=== PATIENT | female | born 1970 | race Caucasian/White ===

== ENCOUNTER 2017-12-18 18:50 | Observation (INO) | payer BC ==
[2017-12-18] MEDS ORDERED: LR 1000 ML IV 1,000 ML IV ONE ×2 (19:06→19:14)
[2017-12-18] MEDS ORDERED: NS 1000 ML 1,000 ML IV ONE (19:12)
--- NOTE | 2017-12-18 19:16 | DR.GENAD ---
HPI - PCP Primary Care Physician: SAJI - HPI Comment HPI Comment: HISTORY BELOW. - Complaint/Symptoms Chief Complaint Doctors Comments: ON TRANEX ACID FOR UTERINE BLEEDING AND BLEEDING GOT WORSE TODAY. TONIGHT SHE HEMORRHAGE WITH BLOOD COMING OUT OF VAGINAL AREA RAPIDLY. SHE STARTED GETTING DIZZY IF SHE WILL PASS OUT. IN TRIAGE, LARGE AMOUNT OF BLOOD POUR OUT WITH LARGE CLOTS. SHE WAS HYPOTENSIVE IN TRIAGE. Chief Complaint:: BLEEDING NON STOP, WEAK. BLEEDING FOR 2 DAYS, HEAVY. HAS NOT CONTACTED PCP - Nurses notes reviewed Nurses Notes Review: Yes - Source History Provided: Patient - Mode of Arrival Mode of Arrival: Ambulatory - Timing Onset of Chief Complaint: 12/17/17 Came on: Suddenly - Duration Duration: Constant Duration: Days PMH - PMH Past Medical History: Yes Past Medical History: Diabetes Past Surgical History: Yes Surgical History: - Family History History of Family Medical Conditions: Yes Family Medical History: Diabetes Mellitus, Hypertension - Social History Does patient currently use any type of tobacco product: No Have you used tobacco products in the last 12 months: No Type of Tobacco Use: None Does any household member use tobacco: No Alcohol Use: None Do you use any recreational Drugs:: No Lives With: Family Lives Where: Home - infectious screening Have you traveled outside the country in the last 6 months?: No Isolation: Standard ROS - Review of Systems Constitutional: Weakness, Fatigue. negative: Chills, Fever, Malaise Eyes: Blurred Vision. negative: Eye Pain, Discharge ENTM: negative: Ear Pain, Nose Discharge, Nose Congestion, Throat Pain Respiratoy: Short of Breath. negative: Productive Cough, Non-Productive Cough, Wheezing, Hemoptysis Cardiovascular: negative: Chest Pain, Edema, Palpitations Gastrointestinal/Abdominal: Abdominal Pain. negative: Diarrhea, Nausea, Vomiting Genitourinary: Pain (BLEEDING PROFUSELY FROM VAGINAL AREA.), Bleeding Neurological: Weakness, Dizziness Musculoskeletal: No Symptoms Reported Integumentary: No Symptoms Reported Hematologic/Lymphatic: Anemia Endocrine: No Symptoms Reported All Other Systems: Reviewed and Negative PE - Vital Signs Vitals: Temperature 97.8 F Pulse Rate [Apical] 104 Pulse Rate 125 Respiratory Rate 27 Blood Pressure [Left Arm] 141/80 Blood Pressure 172/98 O2 Sat by Pulse Oximetry 99 - General Limitations: No Limitations General Appearance: Alert - Head Head Exam: Normal Inspection - Eyes Eye exam: Normal Appearance - ENT ENT Exam: Normal External Ear Exam MDM - Additional Information Additional Information Obtained From: Family - Differential Diagnosis Differential Diagnosis: HYPOTENSION, DIZZINESS VAGINAL BLEEDING/HEMORRHAGE, Course - Treatment Treatment: SEE ORDERS. IV FLUID BOLUS RL AND NS INFUSION IMPROVE BP IN ED. - Consultation Consultation Comments: DISCUSS PATIENT WITH DR. KAUFMAN. WILL ADMIT PATIENT. - Education/Counseling Education/Counseling: Patient, Family Educated On: Treatment, Diagnosis ROR - Labs Reviewed Laboratory Results Reviewed?: Yes Result Diagrams: 12/19/17 01:41 12/18/17 19:15 Laboratory: WBC 19.5 X10^3/uL (3.6-10.0) H 12/18/17 19:15 RBC 3.71 X10^6/uL (3.5-5.4) 12/18/17 19:15 Hgb 6.7 g/dL (12.0-16.0) L* D 12/19/17 01:41 Hct 21.1 % (36.0-47.0) L 12/19/17 01:41 MCV 75.2 fL (80.0-100.0) L 12/18/17 19:15 MCH 23.7 pg (27.0-34.0) L 12/18/17 19:15 MCHC 31.5 g/dL (33.0-35.0) L 12/18/17 19:15 RDW 19.6 % (11.6-16.5) H 12/18/17 19:15 Plt Count 493 X10^3/uL (150.0-450.0) H 12/18/17 19:15 Plt Count Comment Adequate (ADEQUATE) 12/18/17 19:15 MPV 8.2 fL (7.4-11.0) 12/18/17 19:15 Neut % (Auto) 76.3 % (42.0-75.0) H 12/18/17 19:15 Lymph % (Auto) 17.2 % (21.0-51.0) L 12/18/17 19:15 [place]cd[place]ough % (Auto) 4.9 % (0.0-13.0) 12/18/17 19:15 Eos % (Auto) 0.8 % (0.9-2.9) L 12/18/17 19:15 Baso % (Auto) 0.8 % (0.2-1.0) 12/18/17 19:15 Neut # (Auto) 14.9 x10^3/uL (2.2-4.8) H 12/18/17 19:15 Lymph # (Auto) 3.4 X10^3/uL (1.3-2.9) H 12/18/17 19:15 Mcdonough # (Auto) 1.0 x10^3/uL (0.3-0.8) H 12/18/17 19:15 Eos # (Auto) 0.2 x10^3/uL (0.0-0.2) 12/18/17 19:15 Baso # (Auto) 0.2 X10^3/uL (0.0-0.1) H 12/18/17 19:15 Absolute Nucleated RBC 0.0 /100WBC 12/18/17 19:15 Plt Morphology Comment Normal (NORMAL) 12/18/17 19:15 RBC Morphology Abnormal (NORMAL) A 12/18/17 19:15 Hypochromasia 1+ A 12/18/17 19:15 Sodium 136 mmol/L (136-145) 12/18/17 19:15 Corrected Sodium 138 mmol/L (136-145) 12/18/17 19:15 Potassium 3.8 mmol/L (3.5-5.1) 12/18/17 19:15 Chloride 103 mmol/L (98-107) 12/18/17 19:15 Carbon Dioxide 21.6 mmol/L (21-32) 12/18/17 19:15 BUN 13 mg/dL (7-18) 12/18/17 19:15 Creatinine 0.97 mg/dL (0.55-1.02) 12/18/17 19:15 Est GFR (MDRD) Af Amer > 60 (>60) 12/18/17 19:15 Est GFR (MDRD) Non-Af > 60 (>60) 12/18/17 19:15 Glucose 189 mg/dL (65-99) H 12/18/17 19:15 Calcium 7.8 mg/dL (8.5-10.1) L 12/18/17 19:15 Corrected Calcium 8.4 mg/dL (8.5-10.1) L 05/16/18 19:15 Total Bilirubin 0.20 mg/dL (0.2-1.0) 12/18/17 19:15 AST 17 Units/L (15-37) 12/18/17 19:15 ALT 23 Units/L (12-78) 12/18/17 19:15 Alkaline Phosphatase 83 Units/L (46-116) 12/18/17 19:15 Total Protein 7.1 g/dL (6.4-8.2) 12/18/17 19:15 Albumin 3.3 g/dL (3.4-5.0) L 12/18/17 19:15 Globulin 3.8 g/dL (2.5-4.5) 12/18/17 19:15 Albumin/Globulin Ratio 0.9 Ratio (1.1-2.1) L 12/18/17 19:15 HCG, Qual Negative <10 mIU/mL 12/18/17 19:15 Specimen Type Catherized urine 12/18/17 21:14 Urine Color Yellow (YELLOW) 12/18/17 21:14 Urine Appearance Clear (CLEAR) 12/18/17 21:14 Urine pH 5.0 (5.0 - 8.0) 12/18/17 21:14 Ur Specific [place] 1.025 (1.000-1.030) 12/18/17 21:14 Urine Protein Negative (NEGATIVE) 12/18/17 21:14 Urine Glucose (UA) 3+ (NEGATIVE) 12/18/17 21:14 Urine Ketones 2+ (NEGATIVE) 12/18/17 21:14 Urine Occult Blood 3+ (NEGATIVE) 12/18/17 21:14 Urine Nitrite Negative (NEGATIVE) 12/18/17 21:14 Urine Bilirubin Negative (NEGATIVE) 12/18/17 21:14 Urine Urobilinogen Normal (NORMAL) 12/18/17 21:14 Ur Leukocyte Esterase Negative (NEGATIVE) 12/18/17 21:14 Urine RBC 0-2 /HPF (NONE SEEN) 12/18/17 21:14 Urine WBC 0-2 /HPF (NONE SEEN) 12/18/17 21:14 Ur Squamous Epith Cells Few /HPF (NEGATIVE) 12/18/17 21:14 Ur Transition Epith Cell Cancelled 12/18/17 21:13 Ur Renal Epithelial Cell Cancelled 12/18/17 21:13 Calcium Oxalate Crystal Cancelled 12/18/17 21:13 Cystine Crystals Cancelled 12/18/17 21:13 Uric Acid Crystals Cancelled 12/18/17 21:13 Triple Phos Crystals Cancelled 12/18/17 21:13 Tyrosine Crystals Cancelled 12/18/17 21:13 Other Crystals Cancelled 12/18/17 21:13 Amorphous Sediment Cancelled 12/18/17 21:13 Urine Bacteria Trace /HPF (NEGATIVE) 12/18/17 21:14 Hyaline Casts Cancelled 12/18/17 21:13 Granular Casts Cancelled 12/18/17 21:13 Fine Granular Casts Cancelled 12/18/17 21:13 Coarse Granular Casts Cancelled 12/18/17 21:13 RBC Casts Cancelled 12/18/17 21:13 Other Casts Cancelled 12/18/17 21:13 Urine Mucus Few /HPF (NEGATIVE) 12/18/17 21:14 Urine Trichomonas Cancelled 12/18/17 21:13 Urine Yeast Cancelled 12/18/17 21:13 Urine Sperm Cancelled 12/18/17 21:13 Ur Culture Indicated? No/not indicated 12/18/17 21:14 Acetone, Semi-Quant Negative (NEGATIVE) 12/18/17 19:30 Blood Type O POSITIVE 12/18/17 19:30 Antibody Screen Negative 12/18/17 19:30 Crossmatch See Detail 12/18/17 19:30 - Diagnosis Discharge Problem: Dizziness, Hemorrhage, Uterine bleeding Hypotension Qualifiers: Hypotension type: other hypotension type Qualified Code(s): I95.89 - Other hypotension - Discharge Plan Disposition: ADMITTED INPATIENT Condition: Stable - Follow ups/Referrals - Instructions
[2017-12-18 19:32] LABS: BASOPHILS # (AUTO) 0.2 X10^3/uL (0.0-0.1); BASOPHILS % (AUTO) 0.8 % (0.2-1.0); EOSINOPHILS # (AUTO) 0.2 x10^3/uL (0.0-0.2); EOSINOPHILS % (AUTO) 0.8 % (0.9-2.9); HEMATOCRIT 27.9 % (36.0-47.0); HEMOGLOBIN 8.8 g/dL (12.0-16.0); LYMPHOCYTES # (AUTO) 3.4 X10^3/uL (1.3-2.9); LYMPHOCYTES % (AUTO) 17.2 % (21.0-51.0); MEAN CORPUSCULAR HEMOGLOBIN 23.7 pg (27.0-34.0); MEAN CORPUSCULAR HGB CONC 31.5 g/dL (33.0-35.0); MEAN CORPUSCULAR VOLUME 75.2 fL (80.0-100.0); MEAN PLATELET VOLUME 8.2 fL (7.4-11.0); MONOCYTES % (AUTO) 4.9 % (0.0-13.0); NEUTROPHILS # (AUTO) 14.9 x10^3/uL (2.2-4.8); NEUTROPHILS % (AUTO) 76.3 % (42.0-75.0); PLATELET COUNT 493 X10^3/uL (150.0-450.0); RED BLOOD COUNT 3.71 X10^6/uL (3.5-5.4); RED CELL DISTRIBUTION WIDTH 19.6 % (11.6-16.5); WHITE BLOOD COUNT 19.5 X10^3/uL (3.6-10.0)
[2017-12-18 19:34] LABS: SERUM PREGNANCY TEST, QUAL NEGATIVE <10 mIU/mL
[2017-12-18 19:40] LABS: ALANINE AMINOTRANSFERASE 23 Units/L (12-78); ALBUMIN 3.3 g/dL (3.4-5.0); ALKALINE PHOSPHATASE 83 Units/L (46-116); ASPARTATE AMINO TRANSFERASE 17 Units/L (15-37); BLOOD UREA NITROGEN 13 mg/dL (7-18); CALCIUM 7.8 mg/dL (8.5-10.1); CARBON DIOXIDE 21.6 mmol/L (21-32); CHLORIDE 103 mmol/L (98-107); COR CA(FOR HYPOALB) 8.4 mg/dL (8.5-10.1); COR NA(FOR HYPERGLY) 138 mmol/L (136-145); CREATININE 0.97 mg/dL (0.55-1.02); SODIUM 136 mmol/L (136-145); TOTAL PROTEIN 7.1 g/dL (6.4-8.2); eGFR BLACK RACES > 60 (>60); eGFR NON BLACK RACES > 60 (>60)
[2017-12-18 19:50] LABS: HYPOCHROMASIA 1+; PLATELET MORPHOLOGY COMMENT NORMAL (NORMAL)
[2017-12-18] MEDS ORDERED: NS 1000 ML 1,000 ML ONE (19:51)
[2017-12-18] MEDS: NS 1000 ML 1,000 ML IV SCH (19:58)
[2017-12-18 21:48] LABS: BILIRUBIN,URINE NEGATIVE (NEGATIVE); BLOOD/HEMOGLOBIN,URINE 3+ (NEGATIVE); GLUCOSE, URINE 3+ (NEGATIVE); KETONES,URINE 2+ (NEGATIVE); LEUKOCYTE ESTERASE ,URINE NEGATIVE (NEGATIVE); NITRITES,URINE NEGATIVE (NEGATIVE); PROTEIN,URINE NEGATIVE (NEGATIVE); UROBILINOGEN,URINE NORMAL (NORMAL)
[2017-12-18 21:53] LABS: APPEARANCE,URINE CLEAR (CLEAR); COLOR,URINE YELLOW (YELLOW)
[2017-12-18 21:54] LABS: BACTERIA,URINE TRACE /HPF (NEGATIVE); MUCUS,URINE FEW /HPF (NEGATIVE); RBC,URINE 0-2 /HPF (NONE SEEN); SQUAMOUS EPITHELIAL CELL,UR FEW /HPF (NEGATIVE)
[2017-12-19] MEDS: NS 1000 ML 1,000 ML IV SCH ×4 (00:40→10:14)
[2017-12-19 02:11] LABS: HEMATOCRIT 21.1 % (36.0-47.0)
[2017-12-19 02:17] LABS: HEMOGLOBIN 6.7 g/dL (12.0-16.0)
[2017-12-19 07:39] LABS: BASOPHILS # (AUTO) 0.1 X10^3/uL (0.0-0.1); BASOPHILS % (AUTO) 0.8 % (0.2-1.0); EOSINOPHILS # (AUTO) 0.1 x10^3/uL (0.0-0.2); EOSINOPHILS % (AUTO) 1.1 % (0.9-2.9); HEMATOCRIT 23.5 % (36.0-47.0); HEMOGLOBIN 7.7 g/dL (12.0-16.0); LYMPHOCYTES % (AUTO) 23.1 % (21.0-51.0); MEAN CORPUSCULAR HEMOGLOBIN 24.7 pg (27.0-34.0); MEAN CORPUSCULAR HGB CONC 32.6 g/dL (33.0-35.0); MEAN CORPUSCULAR VOLUME 75.9 fL (80.0-100.0); MONOCYTES # (AUTO) 0.7 x10^3/uL (0.3-0.8); MONOCYTES % (AUTO) 5.8 % (0.0-13.0); NEUTROPHILS # (AUTO) 8.9 x10^3/uL (2.2-4.8); NEUTROPHILS % (AUTO) 69.2 % (42.0-75.0); PLATELET COUNT 313 X10^3/uL (150.0-450.0); RED BLOOD COUNT 3.09 X10^6/uL (3.5-5.4); WHITE BLOOD COUNT 12.8 X10^3/uL (3.6-10.0)
[2017-12-19 07:48] LABS: ALANINE AMINOTRANSFERASE 20 Units/L (12-78); ALBUMIN 2.7 g/dL (3.4-5.0); ALKALINE PHOSPHATASE 64 Units/L (46-116); ASPARTATE AMINO TRANSFERASE 13 Units/L (15-37); BLOOD UREA NITROGEN 9 mg/dL (7-18); CARBON DIOXIDE 24.4 mmol/L (21-32); CHLORIDE 106 mmol/L (98-107); COR NA(FOR HYPERGLY) 140 mmol/L (136-145); CREATININE 0.73 mg/dL (0.55-1.02); SODIUM 139 mmol/L (136-145); TOTAL PROTEIN 5.9 g/dL (6.4-8.2); eGFR BLACK RACES > 60 (>60); eGFR NON BLACK RACES > 60 (>60)
[2017-12-19 07:57] LABS: PLATELET MORPHOLOGY COMMENT NORMAL (NORMAL)
[2017-12-19 07:58] LABS: HYPOCHROMASIA SLIGHT
[2017-12-19 08:26] VITALS: BMI 46.5
[2017-12-19] MEDS ORDERED: PREVNAR 13 IM ONE (10:00)
[2017-12-19] MEDS ORDERED: FLUVIRIN IM ONE (10:00)
[2017-12-19] MEDS: PATIENT'S HOME MEDICATION PO SCH ×3 (10:30→15:00)
[2017-12-19] MEDS ORDERED: NS 250 ML IV 250 ML IV ONE (10:44)
[2017-12-19] MEDS ORDERED: GLUCOPHAGE ONE (11:27)
[2017-12-19] MEDS ORDERED: HumuLIN R SUBCUT PRN (11:30)
[2017-12-19] MEDS ORDERED: HumuLIN R ONE (11:33)
[2017-12-19] MEDS ORDERED: GLUCOPHAGE PO SCH (12:00)
[2017-12-19 14:12] LABS: HEMATOCRIT 26.2 % (36.0-47.0); HEMOGLOBIN 8.5 g/dL (12.0-16.0)
[2017-12-19 16:43] VITALS: BP 177/80
[2017-12-19] MEDS ORDERED: SNACK - Diabetic Appropriate PO SCH (20:00)
== END 2017-12-19 16:43 | disposition home or self-care (01) | DRG 761 ==
LOC: ER 19:08 → ICU 21:10
PROVIDERS: ADMIT Obstetrics & Gynecology Obstetrics; ATTEND Specialist
PROC: 30233N1 Transfusion of Nonautologous Red Blood Cells into Peripheral Vein, Percutaneous Approach (ICD-10-PCS; principal; 2017-12-19)
DX: N94.6 Dysmenorrhea, unspecified (principal); N93.8 Other specified abnormal uterine and vaginal bleeding; D50.8 Other iron deficiency anemias; I95.89 Other hypotension; R42 Dizziness and giddiness; E11.65 Type 2 diabetes mellitus with hyperglycemia; R06.02 Shortness of breath; R10.84 Generalized abdominal pain; R53.83 Other fatigue; D25.9 Leiomyoma of uterus, unspecified; N92.5 Other specified irregular menstruation
CPT/HCPCS: 36415; 36430; 51702; 80053; 81001; 82009; 84703; 85014; 85018; 85025; 86850; 86900; 86901; 86922; 96365; 96367; 99284; A4222; P9016; G0378; J1815; J7120